=== PATIENT | male | born 1970 | race Two or more races ===

== ENCOUNTER 2019-11-09 20:53 | Emergency (ER) | payer SELFPAY ==
[~2019-11-09] VITALS: Ht 165.1 cm; Wt 69.0 kg
--- NOTE | 2019-11-09 22:03 | PHYS DOC ---
Past Medical History Past Medical History: Diabetes-Type II Additional Past Medical Histor: SLEEP APNEA, NEUROPATHY. Past Surgical History: Other Additional Past Surgical Histo: SKIN GRAFT ON LEFT THIGH FROM INFECTION Smoking Status: Never Smoker Alcohol Use: None General Adult EDM: Chief Complaint: OTHER COMPLAINTS HPI: HPI: Patient is a 49 year old male, accompanied by his , who presents to the emergency department with complaints of bilateral foot pain from neuropathy. He denies any injury, redness, warmth, or swelling to his feet. states that he was prescribed gabapentin 300 mg 3 times a day 2 weeks ago by his primary care doctor and that his neuropathy pain has not improved. Patient currently rates his pain a 10 out of 10 on the pain scale he denies any alleviating factors the pain is constant. Review of Systems: Review of Systems: Constitutional: Denies fever or chills. [] Musculoskeletal: Per HPI Integument: Denies rash, see HPI. [] Endocrine: Denies hyperglycemia Psychiatric: Denies depression or anxiety. [] Heart Score: Risk Factors: Risk Factors: DM, Current or recent (<one month) smoker, HTN, HLP, family history of CAD, obesity. Risk Scores: Score 0 - 3: 2.5% MACE over next 6 weeks - Discharge Home Score 4 - 6: 20.3% MACE over next 6 weeks - Admit for Clinical Observation Score 7 - 10: 72.7% MACE over next 6 weeks - Early Invasive Strategies Allergies: Allergies: Allergies Coded Allergies Type Severity Reaction Last Updated Verified No Known Drug Allergies 11/09/19 No Physical Exam: PE: Constitutional: Well developed, well nourished, no acute distress, non-toxic appearance. [] HENT: Normocephalic, atraumatic, bilateral external ears normal, nose normal. [] Eyes: PERRLA, EOMI, conjunctiva normal, no discharge. [] Neck: Normal range of motion, no stridor. [] Cardiovascular:Heart rate regular rhythm Lungs & Thorax: Respirations even and unlabored, no retractions, no respiratory distress Abdomen: soft, no tenderness Skin: Warm, dry, no erythema, no rash. [] Extremities: Bilateral feet: 2+ pedal pulses, no erythema, no cyanosis, ROM intact, no edema. [] Neurologic: Alert and oriented X 3, no focal deficits noted. [] Psychologic: Affect normal, judgement normal, mood normal. [] Current Patient Data: Vital Signs: Vital Signs Date Time Temp Pulse Resp B/P (MAP) Pulse Ox O2 Delivery O2 Flow Rate FiO2 11/09/19 21:20 98.1 113 16 107/73 (84) 97 Room Air 98.1 EKG: EKG: [] Radiology/Procedures: Radiology/Procedures: [] Course & Med Decision Making: Course & Med Decision Making Pertinent Labs and Imaging studies reviewed. (See chart for details) [] Dragon Disclaimer: Dragon Disclaimer: This electronic medical record was generated, in whole or in part, using a voice recognition dictation system. Departure Departure Impression: Primary Impression: Chronic neuropathic pain Disposition: HOME, SELF-CARE Condition: STABLE Referrals: UNKNOWN PCP NAME (PCP) Patient Instructions: Diabetic Neuropathy Additional Instructions: Call your primary care doctor and advised that there has been no improvement with the use of the medication prescribed. Return to the emergency room if your symptoms worsen. Justicifation of Admission Dx: Justifications for Admission: Justification of Admission Dx: N/A ANDREW SALMERON APRN Nov 09, 2019 22:03
[2019-11-09] MEDS ORDERED: HYDROcodone/APAP 5/325MG 1 TAB TABLET PO ONE (22:15)
[2019-11-09 22:20] VITALS: BP 120/70
== END 2019-11-09 22:20 | disposition home or self-care (01) ==
LOC: ER 20:53
DX: G89.29 Other chronic pain (principal); G62.9 Polyneuropathy, unspecified; E11.40 Type 2 diabetes mellitus with diabetic neuropathy, unspecified; Z98.890 Other specified postprocedural states
CPT/HCPCS: 99283